=== PATIENT | male | born 1965 | race Caucasian/White ===

== ENCOUNTER 2022-02-19 16:46 | Emergency (ER) | payer OTHER ==
[~2022-02-19 16:46] MED LIST: ASPIRIN CHEWABL81 MG PO; COREG 3.125M3.125 MG PO; NORVASC2.5 MG PO; PRAVASTATIN SOD10 M1 PO; ZESTRIL2.5 MG PO; ZOFRAN4 MG PO
[2022-02-19 17:33] LABS: BASOPHIL 0.3 % (0-2); EOSINOPHIL 1.9 % (0-5); HCT 39.4 % (42.0-52.0); LYMPHOCYTE 12.5 % (15-48); MCH 32.2 pg (25.0-31.0); MCHC 35.5 g/dL (32.0-36.0); MCV 90.6 fL (78.0-100.0); MONOCYTE 7.2 % (0-12); NEUTROPHIL 77.6 % (41-80); NRBC 0; PLT 238 K/uL (150-400); RBC 4.35 M/uL (4.70-6.00); RDW 12.6 % (11.5-14.0); WBC 8.6 K/uL (4.0-10.5)
[2022-02-19 17:43] LABS: ALBUMIN 3.8 g/dL (3.4-5.0); BILIRUBIN - TOTAL 0.5 mg/dL (0.2-1.0); BUN/CREAT RATIO (CALC) 13.7 RATIO; CREATININE 1.53 mg/dL (0.67-1.17); GLOBULIN (CALCULATION) 3.8 g/dL; POTASSIUM 4.1 mmol/L (3.5-5.1); TOTAL PROTEIN 7.6 g/dL (6.4-8.2)
[2022-02-19 18:45] LABS: BILIRUBIN NEGATIVE (NEGATIVE); BLOOD NEGATIVE Ery/uL (NEGATIVE); CLARITY CLEAR (CLEAR); COLOR YELLOW (YELLOW); GLUCOSE (U) NORMAL (NORMAL); LEUKOCYTES NEGATIVE Leu/uL (NEGATIVE); NITRITE NEGATIVE (NEGATIVE); PROTEIN NEGATIVE (NEGATIVE); UROBILINOGEN 0.2 mg/dL (0.2-1.0)
[2022-02-19] MEDS ORDERED: PERCOCET 5-3251 EACH PO (20:10)
== END 2022-02-19 20:28 | disposition home or self-care (01) ==
LOC: FER 16:46
PROVIDERS: Emergency Medicine
DX: R10.31 Right lower quadrant pain (principal); I10 Essential (primary) hypertension; J44.9 Chronic obstructive pulmonary disease, unspecified; F17.210 Nicotine dependence, cigarettes, uncomplicated; E78.5 Hyperlipidemia, unspecified; Z28.310 Unvaccinated for COVID-19; Z79.899 Other long term (current) drug therapy
CPT/HCPCS: 36415; 80053; 81003; 82150; 83690; 85025; J1170; J2405